=== PATIENT | male | born 1940 | race Caucasian/White ===

== ENCOUNTER 2017-04-23 10:07 | Inpatient (IN) | payer MEDICARE ==
[2017-04-23 11:02] LABS: #Basophils 0.1 thou/uL (0.0-0.2); #Monocytes 0.6 thou/uL (0.11-0.59); #Neutrophils 7.7 thou/uL (1.40-6.50); %Basophils 0.7 % (0.0-1.0); %Eosinophils 0.5 % (0.0-10.0); %Lymphocytes 10.9 % (21.0-51.0); %Monocytes 6.2 % (0.0-10.0); %Neutrophils 81.7 % (42.0-75.0); Hemoglobin 13.9 g/dL (14.0-18.0); Mean Corpuscular HGB CONC 32.9 g/dL (32.0-36.0); Mean Corpuscular Hemoglobin 28.7 pg (27.0-31.0); Mean Corpuscular Volume 87.1 fl (80.0-94.0); Mean Platelet Volume 9.3 fL (7.4-10.4); Platelet Count 181 thou/uL (130-400); RBC Distribution Width 13.2 % (11.5-14.5); Red Blood Cell (RBC) Count 4.87 mill/uL (4.70-6.10); White Blood Cell (WBC) Count 9.5 thou/uL (4.8-10.8)
[2017-04-23 11:25] LABS: ALT (SGPT) 19 U/L (8-55); AST (SGOT) 15 U/L (5-34); Albumin 4.5 g/dL (3.4-4.8); Alkaline Phosphatase 110 U/L (40-150); Anion Gap 16 mmol/L (10-20); BUN (Urea Nitrogen) 27 mg/dL (8.4-25.7); Bilirubin, Total 2.4 mg/dL (0.2-1.2); Calc. Creatinine Clearance 0 mL/min (70-130); Calcium 9.8 mg/dL (7.8-10.44); Carbon Dioxide 24 mmol/L (23-31); Chloride 91 mmol/L (98-107); Estimated GFR-MDRD 55; Globulin 3.2 g/dL (2.4-3.5); Glucose 239 mg/dL (83-110); Potassium 4.4 mmol/L (3.5-5.1); Protein, Total 7.7 g/dL (5.8-8.1); Sodium 127 mmol/L (136-145)
--- NOTE | 2017-04-23 12:03 | RAD ---
RADIOGRAPH RIGHT FOOT 3 VIEWS: Date: 04/23/17 Time: 1134 hours HISTORY: 76-year-old male with cellulitis of right lower extremity and pain and swelling of the right foot. COMPARISON: None. FINDINGS: There is diffuse soft tissue edema of the foot, especially around the fifth toe and around the fifth MTP joint. There are hammertoes involving the second through fifth toes. There is undulating, chronic cortical thickening throughout the diaphyses of the third and fourth metatarsals. No aggressive-appe aring periosteal elevation, obvious permeative destructive osseous lesion is identified, although the osteopenia decreases the sensitivity for the detection of such lesions. No fracture or dislocation. Degenerative changes in various joints are predominantly mild. It is mild to moderate at the first MT P. No subcutaneous emphysema is identified. IMPRESSION: 1. Soft tissue edema of the foot, most severe around the fifth metatarsophalangeal joint. 2. Diffuse osteopenia. 3. Multijoint osteoarthrosis, predominantly mild. 4. Chronic periosteal/cortical thickening along the third and fourth metatarsal shafts. 5. No overtly destructive osseous lesion identified. POS: [facility]
[2017-04-23] MEDS ORDERED: CEFAZOLIN 1 GM, Syringe 2.5 ML in Sterile Water 7.5 ML SLOW IVP SCH (13:00)
[2017-04-23] MEDS ORDERED: Ondansetron HCl/PF 4 MG/2 ML Vial IVP PRN (14:48)
[2017-04-23] MEDS ORDERED: Insulin Regular 300 UNITS/3 ML VIAL SC PRN ×2 (14:48)
[2017-04-23] MEDS ORDERED: hydrALAZINE 20 MG/ML VIAL SLOW IVP PRN (14:48)
[2017-04-23] MEDS ORDERED: Dextrose 5% in Water 1,000 ML IV PRN (14:48)
[2017-04-23] MEDS ORDERED: Nitroglycerin 0.4 MG TAB (25 Tab Bottle) PO PRN (14:48)
[2017-04-23] MEDS ORDERED: Dextrose 50% Abboject 50 ML SYRINGE SLOW IVP PRN (14:48)
[2017-04-23] MEDS ORDERED: Fentanyl 100 MCG/2 ML VIAL SLOW IVP PRN (14:48)
[2017-04-23] MEDS ORDERED: Ondansetron ODT 4 MG TAB PO PRN (14:48)
[2017-04-23] MEDS ORDERED: Acetaminophen 325 MG TAB PO PRN (14:48)
[2017-04-23] MEDS ORDERED: Calcium Carbonate 500 MG ChewTAB PO PRN (14:48)
[2017-04-23] MEDS ORDERED: Senokot 8.6 MG TAB PO PRN (14:48)
[2017-04-23 14:56] VITALS: BMI 28.8
[2017-04-23] MEDS: Sodium Chloride 0.9% 1,000 ML IV SCH (15:15)
[2017-04-23] MEDS ORDERED: Meropenem 1 GM in Sodium Chloride 0.9% 100 ML IVPB SCH (16:00)
[2017-04-23] MEDS ORDERED: Meropenem 1 GM in Sterile Water 20 ML SLOW IVP SCH (16:00)
--- NOTE | 2017-04-23 17:02 | HP ---
DATE OF ADMISSION: 04/23/2017 PRIMARY CARE PHYSICIAN: Rohit Burnette M.D. CHIEF COMPLAINT: Right foot swelling of 3 days' duration. HISTORY OF PRESENT ILLNESS: The patient is a 76-year-old white male with diabetes mellitus type 2, who presented to his primary care physician earlier today with above complaints. He was referred to the emergency room for evaluation. Approximately 1 week ago, the patient slipped on ice and fell. There was no loss of consciousness reported. The next day he noticed several blisters on bilateral feet, right more than left. The blister on the left lower extremity completely resolved. Over the last 2-3 days, the patient noticed increasing redness along with discomfort of the right foot. All of the blisters have ruptured. He tried of applying over the counter topical antibiotics without much relief. The redness extended up to the upper legs. There was also significant swelling associated with redness. Yesterday, he had nausea along with 3 episodes of vomiting. In the emergency room, he was started on empiric antibiotics. Please note that blood cultures were not done. PAST MEDICAL HISTORY: 1. Diabetes mellitus type 2. 2. Hypertension. 3. Chronic atrial fibrillation, on anticoagulation. 4. Gout. 5. History of TIA in 2012. 6. Dyslipidemia. 7. PVD PAST SURGICAL HISTORY: Hydrocele repair in 1971. ALLERGIES: The patient is allergic to ASPIRIN and OXYCODONE. CURRENT HOME MEDICATIONS: The patient is able to name some of his medications that include Eliquis, enalapril, glipizide, metformin, digoxin, allopurinol, and hydrochlorothiazide. SOCIAL HISTORY: The patient currently lives at home. Denies any smoking, alcohol or drug use. He is FULL CODE. Makes his own decision. FAMILY HISTORY: Negative for premature coronary artery disease. REVIEW OF SYSTEMS: The following complete review of systems was negative, unless otherwise mentioned in the HPI or below: Constitutional: Weight loss or gain, ability to conduct usual activities. Skin: Rash, itching. Eyes: Double vision, pain. ENT/Mouth: Nose bleeding, neck stiffness, pain, tenderness. Cardiovascular: Palpitations, dyspnea on exertion, orthopnea. Respiratory: Shortness of breath, wheezing, cough, hemoptysis, fever or night sweats. Gastrointestinal: Poor appetite, abdominal pain, heartburn, nausea, vomiting, constipation, or diarrhea. Genitourinary: Urgency, frequency, dysuria, nocturia. Musculoskeletal: Pain, swelling. Neurologic/Psychiatric: Anxiety, depression. Allergy/Immunologic: Skin rash, bleeding tendency. PHYSICAL EXAMINATION: VITAL SIGNS: As discussed above. GENERAL: A 76-year-old male, in no apparent distress. Pain controlled at this time. HEENT: Head atraumatic, normocephalic. Sclerae anicteric. Moist mucous membrane. No oral lesion. NECK: Supple. No JVD appreciated. No carotid bruit. LUNGS: Clear to auscultation bilaterally. No wheezing or rales. HEART: S1, S2 present. Irregularly irregular. No rubs or gallops appreciated. ABDOMEN: Soft, nontender, bowel sounds present. EXTREMITIES: There is significant swelling of the right lower extremity with warmth and tenderness. The ruptured blisters were noted mainly around 3rd, 4th , and 5th digits. The right lower extremity was tender on palpation. The left lower extremity blisters has completely resolved. SKIN: As discussed above. LYMPH NODES: No palpable lymph nodes in the neck. PERIPHERAL VASCULAR: Radial pulses palpable bilaterally. MUSCULOSKELETAL: No joint swelling or tenderness. NEUROLOGIC: Grossly nonfocal, moves all four extremities. PSYCHIATRY: Alert, awake, oriented x3. LABORATORY FINDINGS: CBC showed WBC of 9.5 with hemoglobin 13.9, hematocrit 42.4, platelet count of 181. Chemistries showed sodium 127, potassium 4.4, chloride 91, bicarbonate 24, BUN 27, creatinine 1.27, glucose 239. CRP was 4.85. X-ray of the foot by my review showed soft tissue edema, more severe around the fifth metatarsophalangeal joint. IMPRESSION: 1. Right foot cellulitis with probable infected diabetic superficial ulcerations. 2. Diabetes mellitus type 2. 3. Chronic atrial fibrillation, on anticoagulation. 4. Hypertension. 5. Hyperlipidemia. 6. History of transient ischemic attack. 7. Hyponatremia with prerenal azotemia, probably secondary to dehydration. 8. PVD PLAN: The patient will be monitored on the medical floor. Due to significant swelling and erythema, the patient will require at least 2-3 days of IV antibiotics. We will consult Infectious Disease, Dr. Rogers. We will start empiric vancomycin and meropenem. Wound Care will be consulted. We will resume home medications including Eliquis once dosages are confirmed. We will repeat labs in a.m. Avoid SCDs due to PVD. Plan of care was discussed with the patient in detail. He stated understanding. MTDD
--- NOTE | 2017-04-23 20:08 | CON ---
DATE OF CONSULTATION: 04/23/2017 REASON FOR CONSULTATION: He is in the right foot inflammatory process. HISTORY OF PRESENT ILLNESS: A 76-year-old with a history of type 2 diabetes with neuropathy and atri al fibrillation, on blood thinners, as well as gout, who fell a few days ago. Then, he noticed infla mmatory changes with blistering in the right and left feet, more intense on the right side. Over the past 48 hours, there has been worsening erythema and pain in the right foot and he was admitted asso ciated with some nausea and general malaise. No headaches, visual symptoms, sore throat, odynophagia , dysphagia. No cough, sputum production, or chest pain. No abdominal pain, diarrhea, no genitourin ayla symptoms, no other joint symptoms. No neurological symptoms. PAST MEDICAL HISTORY: Type 2 diabetes, hypertension, atrial fibrillation, on blood thinners, gout, T IA, dyslipidemia. PAST SURGICAL HISTORY: Hydrocele repair. ALLERGIES: ASPIRIN, OXYCODONE. MEDICATIONS: Currently receiving Ecotrin, dextrose, digoxin, docusate, enalapril, glucagon, hydralaz ine, meropenem, vancomycin. 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 Never smoker. PHYSICAL EXAMINATION: VITAL SIGNS: T-max 97.7, BP 180/90, pulse 72, respirations 18, O2 saturation 98%. GENERAL: Appears in no distress. SKIN: Shows the areas of blistering in the right foot. Blisters involve the first, third, fourth, a nd fifth toes. There is a lot of maceration in the interdigital folds webspace area and there is a l arge blister in the lateral aspect of the fifth MPJ side with some areas of necrosis. There is eryth radha ascending through the foot and distal right leg in a circumferential distribution. There is a sh allow blister in the left medial mid foot region, which has no inflammatory changes noticeable. No l ymphadenopathy. HEENT: Ocular movements are conjugate. Oral cavity is with numerous teeth with quite a bit of decay . NECK: Supple, no jugular venous distention. LUNGS: Symmetric, clear breath sounds. HEART: S1, S2, regular rate. No S3 or S4. ABDOMEN: Soft, not distended or tender. No ascites. No bladder distention, no general malaise. EXTREMITIES: Pulses are 2+ in popliteals and faintly palpable in dorsalis pedis, most likely because of edema on the right side. The left side, the pulses are 1+. Capillary refill appears normal. He is able to move extremities equally. NEUROLOGIC: His cognitive function appears to be intact. LABORATORY DATA: White cell count is 5.2, on 9.5, hemoglobin 13, platelets 181, 81% neutrophils. Cr eatinine 1.29, GFR 55, glucose 239. Liver profile normal. Albumin 4.6, globulin 3.1. TSH 2.5. Hep atitis serology negative. CRP 4.85. X-rays with no bony lesions from the foot. Arterial Doppler of lower extremity with biphasic waveform left common femoral artery. The right leg with triphasic wav eform which becomes biphasic in the SFA and again, the waveform becomes triphasic again in the distal aspects. There are monophasic waveforms distal to the right knee. ASSESSMENT: Diabetes type 2 with some element of peripheral vascular disease and injury to the right foot with areas of blistering. This occurred after a fall. There is cellulitis associated with thi s. It is ascending to the distal right leg. DISCUSSION: The blistering and erythema appear to be a consequence of the fall on the right side and he does have associated cellulitis now. The depth of inflammatory involvement is not clear and we w ill check his MRI scan of the right foot. We will place interdigital silver impregnated material. I n view of the monophasic waveforms, may merit evaluation by a vascular surgeon.
[2017-04-23] MEDS ORDERED: Cefepime 2 GM in Sodium Chloride 0.9% 100 ML IVPB SCH (21:00)
[2017-04-23] MEDS ORDERED: Hydrochlorothiazide 25 MG TAB PO SCH (21:00)
[2017-04-23] MEDS: Apixaban 5 MG TAB PO SCH (21:20)
[2017-04-23] MEDS: Aspirin 81 mg Enteric Coated Tablet PO SCH (21:21)
[2017-04-23] MEDS: Docusate 100 MG CAP PO SCH (21:21)
[2017-04-23] MEDS: Famotidine 20 MG TAB PO SCH (21:22)
[2017-04-23] MEDS: Cefepime 2 GM, Syringe 2.5 ML in Sterile Water 10 ML SLOW IVP SCH (21:55)
[2017-04-24] MEDS ORDERED: Vancomycin HCl 1 GM in Premix Bag 1 BAG IVPB SCH (02:00)
[2017-04-24 05:10] LABS: #Basophils 0.1 thou/uL (0.0-0.2); #Eosinphils 0.2 thou/uL (0.0-0.7); #Monocytes 0.7 thou/uL (0.11-0.59); #Neutrophils 5.4 thou/uL (1.40-6.50); %Basophils 0.8 % (0.0-1.0); %Lymphocytes 23.4 % (21.0-51.0); %Monocytes 8.9 % (0.0-10.0); Hemoglobin 12.1 g/dL (14.0-18.0); Mean Corpuscular HGB CONC 32.4 g/dL (32.0-36.0); Mean Corpuscular Hemoglobin 28.3 pg (27.0-31.0); Mean Corpuscular Volume 87.3 fl (80.0-94.0); Mean Platelet Volume 9.7 fL (7.4-10.4); Platelet Count 169 thou/uL (130-400); Red Blood Cell (RBC) Count 4.27 mill/uL (4.70-6.10); White Blood Cell (WBC) Count 8.3 thou/uL (4.8-10.8)
[2017-04-24 05:22] LABS: Lactic Acid 0.8 mmol/L (0.5-2.2)
[2017-04-24 05:32] LABS: ALT (SGPT) 14 U/L (8-55); AST (SGOT) 11 U/L (5-34); Albumin 3.9 g/dL (3.4-4.8); Alkaline Phosphatase 95 U/L (40-150); Anion Gap 11 mmol/L (10-20); BUN (Urea Nitrogen) 21 mg/dL (8.4-25.7); Bilirubin, Total 1.6 mg/dL (0.2-1.2); Calc. Creatinine Clearance 80 mL/min (70-130); Calcium 9.1 mg/dL (7.8-10.44); Carbon Dioxide 29 mmol/L (23-31); Chloride 95 mmol/L (98-107); Estimated GFR-MDRD 62; Globulin 2.6 g/dL (2.4-3.5); Glucose 215 mg/dL (83-110); Magnesium 1.8 mg/dL (1.6-2.6); Potassium 4.1 mmol/L (3.5-5.1); Protein, Total 6.5 g/dL (5.8-8.1); Sodium 131 mmol/L (136-145)
[2017-04-24] MEDS ORDERED: glipiZIDE 5 MG TAB PO SCH (07:30)
[2017-04-24] MEDS ORDERED: metFORMIN 500 MG TAB PO SCH (09:30)
[2017-04-24] MEDS: Allopurinol 300 MG TAB PO SCH (09:40)
[2017-04-24] MEDS: Digoxin 0.25 MG TAB PO SCH (09:40)
[2017-04-24] MEDS: Apixaban 5 MG TAB PO SCH ×2 (09:40→19:55)
[2017-04-24] MEDS: Saccharomyces boulardii 250 MG CAP PO SCH (09:47)
[2017-04-24] MEDS: Docusate 100 MG CAP PO SCH ×2 (09:47→19:56)
[2017-04-24] MEDS: Cefepime 2 GM, Syringe 2.5 ML in Sterile Water 10 ML SLOW IVP SCH (09:47)
[2017-04-24] MEDS: Famotidine 20 MG TAB PO SCH ×2 (09:47→19:56)
[2017-04-24] MEDS: Sodium Chloride 0.9% 1,000 ML IV SCH ×3 (09:48→19:59)
--- NOTE | 2017-04-24 09:51 | MRI ---
MRI RIGHT FOOT WITH AND WITHOUT CONTRAST: HISTORY: Skin blistering, evaluate for osteomyelitis. COMPARISON: Radiograph 04/23/17. FINDINGS: Bones: There is reactive edema of the tuft of the distal phalanx great toe. There is also some low-grade ed radha within the distal and the proximal phalanx of the small bowel with mild enhancement. No loss of normal T1 marrow signal to suggest osteomyelitis. This is likely from reactive changes. No fracture. No malalignment. Soft Tissues: There is some skin thickening and poor enhancement of the tissue surrounding the 5th digit suggesting cellulitis and infection. There also appears to be a skin blister at the great toe distal phalanx p lantar soft tissues and also of the forefoot plantar soft tissues. Muscles: There is extensive muscle atrophy. No evidence for pyomyositis. Tendons: No significant tenosynovitis. IMPRESSION: 1. Reactive edema within the proximal and distal phalanx small toe adjacent to an area of cellulitis and soft tissue infection. The patient is at high risk for developing osteomyelitis. 2. Reactive edema of the tuft of the distal phalanx of the great toe. POS: [facility]
--- NOTE | 2017-04-24 14:02 | CON ---
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 Vita mills. He has a history of diabetes mellitus, poorly controlled, with most recent hemoglobin A1c of 9. He fell on some ice 1 week ago and developed a blister initially on his left foot and then follo wed by his right foot. Due to persistent pain in his foot on the right, he asked his to look at his foot and subsequently this led to hospital admission. He has cardiovascular risk factors of abner betes mellitus, hypertension, and a remote smoking history, although none since 1980. He denies any elevated cholesterol level, although was placed on the statins by , which the patient subseq uently stopped. He also has a history of chronic atrial fibrillation, for which he is on anticoagula tion. He has no history of coronary disease. He has a history of gout and had a TIA about 2 years a go. He states that he has been evaluated for arterial insufficiency of his legs in the past, but lopez s not know the results. He admits to his legs becoming tired if he walks uphill, but mostly this is in his hips and lower back. He does not have any claudication in his calves. PAST SURGICAL HISTORY: Hydrocele in 1971. 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 ALLERGIES: He reports allergies to ASPIRIN and OXYCODONE and intolerance to STATINS. HOME MEDICATIONS: Metformin 1000 b.i.d., glipizide 5 mg every noon recently increased from 2.5 mg, e nalapril 20 b.i.d., digoxin 250 mcg daily, aspirin 81 a day, Eliquis 5 b.i.d., and allopurinol 300 a day. PHYSICAL EXAMINATION: GENERAL: He is an alert, cooperative gentleman, in no distress. VITAL SIGNS: His height 6 feet 2 inches, weight 225. NECK: No carotid bruits. CARDIAC: Irregular rhythm, no murmurs. LUNGS: Clear to auscultation. ABDOMEN: Mildly obese, soft, and nontender. EXTREMITIES: He has palpable femoral and popliteal pulses with no swelling in his left leg. He has mild edema in his right lower leg. He has skin changes of pigmentation consistent with chronic venou s insufficiency bilaterally. He has a small ruptured blister on the dorsum of his left foot with no cellulitis and he has cellulitis on the dorsum of his right foot, particularly laterally. He has mac erated fourth and fifth toes and a black eschar over the lateral aspect of the right fifth metatarsal head area about 1 x 3 cm. He has a blister on the lateral aspect of his foot more proximally. His great toe has a black blister, but toes otherwise appear pink and well perfused. Doppler signals lisa aterally monophasic dorsalis pedis signals, biphasic posterior tibial signals, and more triphasic per palomares signals. At this time, the patient does have at least mild to moderate peripheral arterial disease. He has no palpable pedal pulses, but his dominant vessel appears to be his peroneal artery bilaterally by ston e Doppler signals. At this time, we will aggressively treat him for Staph or strep cellulitis as is being done and elevate his legs to minimize edema and then he may need some debridement of this wound . Angiography will be considered if he fails to exhibit healing once the infectious process has reso lved.
[2017-04-24] MEDS: metFORMIN 500 MG TAB PO SCH (17:12)
--- NOTE | 2017-04-24 18:21 | PRG ---
DATE OF SERVICE: 04/24/2017 SUBJECTIVE: Feeling better. No respiratory symptoms. No abdominal pain or diarrhea. Voiding witho ut difficulty. OBJECTIVE: VITAL SIGNS: Normal. LUNGS: Clear. HEART: S1, S2, regular rate. ABDOMEN: Soft. EXTREMITIES: Right foot with a dressing which was not removed. LABORATORY DATA: The CBC is normal today. Chemistry with a creatinine of 1.14. MRI showed no evide nce of cellulitis, but no abscess, some reactive edema in the proximal distal phalanx small toe, sabino cent to an area of cellulitis and reactive edema of the tuft of the distal phalanx of the great toe a s well. ASSESSMENT AND DISCUSSION: Type 2 diabetes and peripheral vascular disease, injury to the right foot , areas of blistering, no evidence of osteomyelitis at this point in time. We do not have any cultur e data. Streptococcal organisms are the most likely culprits here and could potentially discharge pl anning with oral Cipro plus Keflex. We will go ahead and make the transition today and see if he [place] erates and consider discharge planning tomorrow with wound care.
[2017-04-24] MEDS: Cephalexin 250 MG CAP PO SCH (19:55)
[2017-04-24] MEDS: Cipro 250 MG TAB PO SCH (19:55)
[2017-04-24] MEDS: Aspirin 81 mg Enteric Coated Tablet PO SCH (19:57)
--- NOTE | 2017-04-24 21:19 | PDOC.PN ---
- Subjective Encounter Start Date: 04/24/17 Encounter Start Time: 10:30 Patient seen and examined. Rt foot swelling/redness improving. No overnight events - Objective Resuscitation Status: Resuscitation Status FULL:Full Resuscitation MAR Reviewed: Yes Vital Signs & Weight: Vital Signs (12 hours) Temp Pulse Resp BP BP Pulse Ox 04/24/17 15:35 98.1 F 66 20 138/79 97 04/24/17 11:23 98.3 F 58 L 18 147/81 H 97 04/24/17 09:40 62 168/85 H Weight Admit Weight 225 lb Weight 225 lb I&O: 04/23/17 04/24/17 04/25/17 06:59 06:59 06:59 Intake Total 975 1520 Output Total 1400 Balance 975 120 Result Diagrams: 04/24/17 03:58 04/24/17 03:58 Additional Labs: Accuchecks 04/24/17 04/24/17 04/24/17 16:15 11:26 04:23 POC Glucose 139 H 241 H 192 H 04/23/17 19:49 POC Glucose 204 H Phys Exam - Physical Examination Constitutional: NAD Respiratory: no wheezing, no rhonchi Cardiovascular: RRR, no rub Gastrointestinal: soft, non-tender, positive bowel sounds Neurological: moves all 4 limbs Psychiatric: A&O x 3 Dx/Plan - Plan IMPRESSION: 1. Right foot cellulitis with probable infected diabetic superficial ulcerations. 2. Diabetes mellitus type 2. 3. Chronic atrial fibrillation, on anticoagulation. 4. Hypertension. 5. Hyperlipidemia. 6. History of transient ischemic attack. 7. Hyponatremia with prerenal azotemia, probably secondary to dehydration. 8. PVD PLAN: * Consult Vascular for PVD per ID input * ID input appreciated * MRI result noted * Cont Atbx per ID * Cont current meds as below. Review of Systems - Review of Systems Cardiovascular: negative: chest pain, palpitations, orthopnea, paroxysmal nocturnal dyspnea, edema, light headedness Gastrointestinal: negative: Nausea, Vomiting, Abdominal Pain, Diarrhea, Constipation, Melena, Hematochezia - Medications/Allergies Allergies/Adverse Reactions: Allergies Allergy/AdvReac Type Severity Reaction Status Date / Time oxycodone [From Percodan] Allergy Unverified 04/23/17 12:57 Medications: Current Medications Acetaminophen (Tylenol) 650 mg PO Q4H PRN PRN Reason: Headache/Fever or Pain Allopurinol (Zyloprim) 300 mg PO DAILY [facility] Last Admin: 04/24/17 09:40 Dose: 300 mg Apixaban (Eliquis) 5 mg PO BID [facility] Last Admin: 04/24/17 19:55 Dose: 5 mg Aspirin (Ecotrin) 81 mg PO HS [facility] Last Admin: 04/24/17 19:57 Dose: 81 mg Calcium Carbonate (Tums) 1,000 mg PO Q4H PRN PRN Reason: Heartburn or Indigestion Cephalexin (Keflex) 500 mg PO Q6HR [facility] Last Admin: 04/24/17 19:55 Dose: 500 mg Ciprofloxacin (Cipro) 500 mg PO BID@0600,2000 [facility] Last Admin: 04/24/17 19:55 Dose: 500 mg Dextrose/Water (Dextrose 50%) 25 gm SLOW IVP PRN PRN PRN Reason: Hypoglycemia Digoxin (Lanoxin) 0.25 mg PO DAILY [facility] Last Admin: 04/24/17 09:40 Dose: 0.25 mg Docusate Sodium (Colace) 100 mg PO BID [facility] Last Admin: 04/24/17 19:56 Dose: Not Given Enalapril Maleate (Vasotec) 20 mg PO BID [facility] Last Admin: 04/24/17 19:55 Dose: 20 mg Famotidine (Pepcid) 20 mg PO BID [facility] Last Admin: 04/24/17 19:56 Dose: 20 mg Glipizide (Glucotrol Xl) 5 mg PO QAM-[facility] Last Admin: 04/24/17 09:40 Dose: 5 mg Glucagon (Glucagon) 1 mg IM PRN PRN PRN Reason: Hypoglycemia Hydralazine HCl (Apresoline) 10 mg SLOW IVP Q4H PRN PRN Reason: SBP Greater Than 180 Sodium Chloride (Normal Saline 0.9%) 1,000 mls @ 75 mls/hr IV .[id number] [facility] Last Admin: 04/24/17 19:59 Dose: 1,000 mls Dextrose/Water (D5w) 1,000 mls @ 0 mls/hr IV .Q0M PRN; As Directed PRN Reason: Hypoglycemia Insulin Human Regular (Humulin R) 0 units SC .MILD SLIDING SCALE PRN PRN Reason: Mild Correctional Scale Insulin Human Regular (Humulin R) 0 units SC .BEDTIME SLIDING SC PRN PRN Reason: Bedtime Correctional Scale Metformin HCl (Glucophage) 1,000 mg PO BID-[facility] Last Admin: 04/24/17 17:12 Dose: 1,000 mg Nitroglycerin (Nitrostat) 0.4 mg PO Q5MIN PRN PRN Reason: Chest Pain Ondansetron HCl (Zofran Odt) 4 mg PO Q6H PRN PRN Reason: Nausea/Vomiting Ondansetron HCl (Zofran) 4 mg IVP Q6H PRN PRN Reason: Nausea/Vomiting Saccharomyces Boulardii (Florastor) 250 mg PO DAILY [facility] Last Admin: 04/24/17 09:47 Dose: Not Given Senna (Senokot) 2 tab PO HSPRN PRN PRN Reason: Constipation
[2017-04-25] MEDS: Cephalexin 250 MG CAP PO SCH ×3 (00:33→12:09)
[2017-04-25] MEDS: Cipro 250 MG TAB PO SCH (05:24)
[2017-04-25] MEDS: Sodium Chloride 0.9% 1,000 ML IV SCH (09:59)
[2017-04-25] MEDS: metFORMIN 500 MG TAB PO SCH (10:01)
[2017-04-25] MEDS: Famotidine 20 MG TAB PO SCH (10:01)
[2017-04-25] MEDS: Saccharomyces boulardii 250 MG CAP PO SCH (10:01)
[2017-04-25] MEDS: Allopurinol 300 MG TAB PO SCH (10:02)
[2017-04-25] MEDS: Apixaban 5 MG TAB PO SCH (10:02)
[2017-04-25] MEDS: Digoxin 0.25 MG TAB PO SCH (10:02)
[2017-04-25] MEDS: Docusate 100 MG CAP PO SCH (10:07)
[2017-04-25] MEDS ORDERED: Sodium Chloride 0.9% 1,000 ML IV SCH (11:51)
[2017-04-25 11:56] VITALS: BP 156/85; TEMP 97.9
--- NOTE | 2017-04-25 13:34 | DIS ---
DATE OF DISCHARGE: 04/25/2017 DISCHARGE DISPOSITION: Home. DISCHARGE INSTRUCTIONS: 1. Follow up with primary care physician, Dr. Burnette in 1 week. 2. Follow up with Dr. Kalia Velázquez, vascular after 7-10 days. 3. Follow up with Dr. Rogers in 7-10 days. 4. Outpatient wound care is recommended. 5. Fall precaution was emphasized. 6. CBC, BMP, and CRP after the antibiotic completion is recommended. Primary care physician is miguel mariscal to follow. ALLERGIES: OXYCODONE. DISCHARGE MEDICATIONS: 1. Keflex 500 mg every 6 hours for the next 12 days. 2. Ciprofloxacin 500 mg b.i.d. for the next 12 days. 3. Digoxin 250 mcg daily. 4. Enalapril 20 mg b.i.d. 5. Glipizide extended release 5 mg daily. 6. Hydrochlorothiazide 25 mg daily. 7. Metformin 1000 mg b.i.d. 8. Florastor 250 mg daily for the next 20 days. 9. Saw palmetto 450 mg b.i.d. 10. Allopurinol 300 mg daily. 11. Apixaban 5 mg b.i.d. 12. Aspirin 81 mg daily. INPATIENT CONSULTANTS: 1. Kalia Velázquez M.D., Vascular. 2. Infectious Disease, Dr. Rogers. 3. Inpatient wound care team. The patient was seen and examined on the day of discharge, denies any new complaints. No fevers, ch ills, chest pain, shortness of breath, palpitations reported. Right lower extremity swelling is impr oving. SIGNIFICANT LABORATORY DATA: 1. Sodium on admission was 127; next day, it was 131. 2. CRP was 4.85. 3. CBC showed WBC 9.5 with neutrophils of 81.7%. 4. MRI of the right lower extremity showed reactive edema within the proximal and distal phalanx, sm all toe adjacent to an area of cellulitis and soft tissue infection. The patient is at high risk for developing osteomyelitis. There was also reactive edema of the tuft of the distal phalanx of the gr eat toe. BRIEF HOSPITAL COURSE: The patient is a 76-year-old white male with diabetes mellitus type 2, who pr esented to his primary care physician with right foot swelling of 3 days' duration. This happened af ter patient slipped on ice and fell last week. Please refer to the history and physical dated 2017 for further details. The patient was admitted to the hospital with a diagnosis of right foot cellulitis with possible oste omyelitis. MRI of the foot was negative for osteomyelitis. The patient was evaluated by Infectious Disease, Dr. Rogers. Antibiotics have been optimized per Dr. Rogers. The patient was also evaluated b y Vascular Surgery, Dr. Kalia Velázquez due to history of peripheral vascular disease. Dr. Velázquez recomme nded continuation of antibiotics for now. He will follow up with Dr. Velázquez as an outpatient. Kierra gee will be discharged home with oral ciprofloxacin and Keflex. The patient was extensively counseled on diabetes mellitus type 2. His last A1c was around 9. Plan of care was discussed with the patient and the family at the bedside. Total time coordinating the discharge of this patient was 37 minutes. FINAL DIAGNOSES: 1. Right foot cellulitis with infected diabetic ulcers superficial. 2. Diabetes mellitus type 2. 3. Chronic atrial fibrillation, on anticoagulation. 4. Hypertension. 5. Hyperlipidemia. 6. History of transient ischemic attack. 7. Hyponatremia, improved. 8. Prerenal azotemia on admission, improved. 9. Peripheral vascular disease.
== END 2017-04-25 15:39 | disposition home or self-care (01) | DRG 638 ==
LOC: ERS 10:07 → T4-B 13:49
PROVIDERS: ADMIT Internal Medicine; ATTEND Internal Medicine
DX: E11.628 Type 2 diabetes mellitus with other skin complications (principal); L03.115 Cellulitis of right lower limb; L97.511 Non-pressure chronic ulcer of other part of right foot limited to breakdown of skin; E11.40 Type 2 diabetes mellitus with diabetic neuropathy, unspecified; E11.621 Type 2 diabetes mellitus with foot ulcer; I48.2 Chronic atrial fibrillation; E86.0 Dehydration; E11.51 Type 2 diabetes mellitus with diabetic peripheral angiopathy without gangrene; E87.1 Hypo-osmolality and hyponatremia; E78.5 Hyperlipidemia, unspecified; I10 Essential (primary) hypertension; W00.0XXA Fall on same level due to ice and snow, initial encounter; R79.89 Other specified abnormal findings of blood chemistry; Z79.01 Long term (current) use of anticoagulants; Z86.73 Personal history of transient ischemic attack (TIA), and cerebral infarction without residual deficits; Z87.891 Personal history of nicotine dependence; M10.9 Gout, unspecified
CPT/HCPCS: 36415; 36416; 80053; 83605; 83735; 85025; 86140; 94760; 96361; 96365; A4216; J0690; J0692; J1815; J2185; J3370; J7050

== ENCOUNTER 2017-05-02 08:46 | Outpatient (CLI) | payer MEDICARE ==
--- NOTE | 2017-05-03 00:12 | HP ---
DATE OF SERVICE: 05/02/2017 HISTORY OF PRESENT ILLNESS: Mr. Thomas Rock Jr. is a very pleasant 76-year-old gentleman accomp anied by his , who presents to the Wound Center for evaluation of multiple lesions of the right f oot. The patient's states that on 04/17/2017, the patient slipped and fell on ice. Apparently, the patient developed blisters, which were noted the day after his fall. The largest blister was lo cated over the right lateral forefoot. The patient was seen by his primary care physician, Dr. Leta baptiste, 6 days later and at this time referred to the Emergency Department. After being seen in the E mergency Department, the patient was admitted for further evaluation and treatment. The patient was discharged from [facility] on 04/25/2017. The patient's states that Mr. Rock has been receiving dressing changes of ABDs and gauze. The patient's states that Mr. Isabelle bauer was seen in consultation by Dr. Velázquez during his hospital stay. The patient states that he has a [facility] appointment with Dr. Velázquez later today. PAST MEDICAL HISTORY: 1. Diabetes mellitus. 2. Hypertension. 3. Atrial fibrillation. 4. Gout. 5. History of transient ischemic attack. 6. Peripheral vascular disease. PAST SURGICAL HISTORY: Repair of hydrocele. MEDICATIONS: 1. Ciprofloxacin. 2. Metformin. 3. Glipizide. 4. Keflex. ALLERGIES: PERCODAN. SOCIAL HISTORY: Significant for tobacco use of approximately 4 packs of cigarettes per day for 25 ye ars. The patient admits to the social consumption of alcohol in the past. He states that he stopped drinking completely 8 years ago. FAMILY HISTORY: Negative for diabetes mellitus or coronary artery disease. PHYSICAL EXAMINATION: VITAL SIGNS: Temperature 97.3, pulse 77, respirations 18, blood pressure 184/90. Accu-Chek 154. GENERAL: A 76-year-old gentleman lying on table in examination room in no acute distress. HEENT: Normocephalic, atraumatic. NECK: No nuchal rigidity. CHEST: Clear to auscultation. CARDIAC: Regular rate and rhythm. ABDOMEN: Soft. EXTREMITIES: An ulceration of the plantar surface of the right lateral foot is present, which measur es approximately 6.2 x 2.1 cm. Granulation tissue is visible only at the periphery of the wound. Mo st of the wound bed is covered by dry stable eschar. No purulent drainage is associated with the wou nd. No erythema of the skin surrounding the wound is present. No maceration of the skin of the lisa wound is noted. A dorsalis pedis pulse is palpable on the right. No significant edema of the right foot is present on exam today. ASSESSMENT AND PLAN: 1. Ulceration of plantar surface of right lateral foot. Dressing changes of Silverlon will be initi ated today. These dressing changes are to be performed on a daily basis or alternatively three times per week after cleansing and irrigation. The patient has been asked to keep his followup appointmen t with Dr. Velázquez later today. I will see Hallie Pranav again in two weeks. The patient is to continue c iprofloxacin as previously prescribed. The patient and his understand and are in agreement with the preceding treatment plan. 2. Diabetes mellitus. Patient's Accu-Chek in clinic today is 154. The patient has been told that f or optimal wound healing, his blood glucoses should remain below 150. 3. Hypertension. 4. Atrial fibrillation. 5. Gout. 6. History of transient ischemic attack. 7. Peripheral vascular disease.
[2017-05-06] MEDS ORDERED: Sodium Chloride 0.9% 15 ML NEB ONE (15:39)
== END 2017-05-02 08:47 | disposition home or self-care (01) ==
LOC: WCC 08:46
PROVIDERS: ATTEND Family Medicine
DX: E11.621 Type 2 diabetes mellitus with foot ulcer (principal); L97.519 Non-pressure chronic ulcer of other part of right foot with unspecified severity; I10 Essential (primary) hypertension; I48.91 Unspecified atrial fibrillation; M10.9 Gout, unspecified; I73.9 Peripheral vascular disease, unspecified; Z86.73 Personal history of transient ischemic attack (TIA), and cerebral infarction without residual deficits
CPT/HCPCS: 82962; 97139; 97602; G0463; 36416; 99204

== ENCOUNTER 2017-05-16 09:00 | Outpatient (CLI) | payer MEDICARE ==
--- NOTE | 2017-05-16 10:05 | PRG ---
DATE OF SERVICE: 05/16/2017 HISTORY: Mr. Thomas Rock, . is a very pleasant 76-year-old gentleman accompanied by his who presents to the Wound Center for evaluation of multiple lesions of the right foot. The patient's previously stated that on 04/17/2017 the patient slipped and fell on ice. Apparently, the patient developed blisters, which were noted the day after his fall. The largest blister was located over the right lateral forefoot. The patient was seen by his primary care physician, Dr. Burnette, 6 days later and at this time referred to the Emergency Department. After being seen in the Emergency Department, the patient was admitted for further evaluation and treatment. The patient was discharged from [facility] on 04/25/2017. Prior to being seen in the Wound Center, the patient's stated, Mr. Rock had been receiving dressing changes of ABDs and gauze. The patient's stated that Mr. Rock had been seen in consultation by Dr. Velázquez during his hospital stay. After being seen in the Wound Center, dressing changes of Silverlon were initiated. The patient has been receiving these dressing changes as prescribed. PHYSICAL EXAMINATION: VITAL SIGNS: Temperature 97.3, pulse 76, respirations 18, blood pressure 180/ 81. Accu-Chek 200. EXTREMITIES: An ulceration of the plantar surface of the right lateral foot is present, which measures approximately 2.0 x 2.2 cm. Granulation tissue is visible only at the periphery of the wound. Again, most of the wound bed is covered by dry stable eschar. No purulent drainage is associated with the wound. No erythema of the skin surrounding the wound is present. No maceration of the skin of the periwound is noted. A dorsalis pedis pulse is palpable on the right. No significant edema of the right foot is present on exam today. ASSESSMENT AND PLAN: 1. Ulceration of plantar surface of right lateral foot. Dressing changes of Silverlon will be continued 3 times per week after cleansing and irrigation. The patient's will continue to assist Mr. Rock with his dressing changes. I will see Mr. Rock again in four weeks. 2. Diabetes mellitus. The patient's Accu-Chek in clinic today is 200. The patient has been reminded that for optimal wound healing, his blood glucoses should remain below 150. 3. Hypertension. 4. Atrial fibrillation. 5. Gout. 6. History of transient ischemic attack. 7. Peripheral vascular disease. MTDD
[2017-05-16] MEDS ORDERED: Lidocaine 2% Jelly 5 ML TUBE ONE (11:11)
== END 2017-05-16 09:01 | disposition home or self-care (01) ==
LOC: WCC 09:00
PROVIDERS: ATTEND Family Medicine
DX: E11.621 Type 2 diabetes mellitus with foot ulcer (principal); L97.419 Non-pressure chronic ulcer of right heel and midfoot with unspecified severity; I10 Essential (primary) hypertension; I48.91 Unspecified atrial fibrillation; M10.9 Gout, unspecified; Z86.73 Personal history of transient ischemic attack (TIA), and cerebral infarction without residual deficits; E11.51 Type 2 diabetes mellitus with diabetic peripheral angiopathy without gangrene; I73.9 Peripheral vascular disease, unspecified
CPT/HCPCS: 36416; 97602

== ENCOUNTER 2017-07-15 09:14 | Outpatient (CLI) | payer MEDICARE ==
--- NOTE | 2017-07-15 11:09 | PRG ---
DATE OF SERVICE: 07/15/2017 HISTORY: Mr. Thomas Rock Jr. is a very pleasant 76-year-old gentleman accompanied by his moe sol presents to the Wound Center for evaluation of multiple lesions of the right foot. The patient's w max previously stated that on 04/17/2017, the patient slipped and fell on the ice. Apparently, the p atient developed blisters which were noted the day after his fall. The largest blister was located o kacie the right lateral forefoot. The patient was seen by his primary care physician, Dr. Burnette 6 days later and at this time referred to the Emergency Department. After being seen in the Emergency Department, the patient was admitted for further evaluation and treatment. The patient was discharg ed from [facility] on 04/25/2017. Prior to being seen in the Wound Center, khurram e patient's stated Mr. Rock had been receiving dressing changes of ABDs and gauze. The patient 's stated that Mr. Rock had been seen in consultation by Dr. Velázquez during his hospital stay. A fter being seen in the Wound Center, dressing changes of Silverlon were initiated. PHYSICAL EXAMINATION: VITAL SIGNS: Temperature 97.5, pulse 74, respirations 19, blood pressure 189/88. EXTREMITIES: An ulceration of the plantar surface of the right lateral foot is present which measure s approximately 1.2 x 2.9 cm. Granulation tissue is visible within the wound margins. Necrotic and nonviable tissue present within the wound margins was debrided with an excisional full-thickness debr idement with the use of a curette and scissors. No purulent drainage is associated with the wound. No erythema of the skin surrounding the wound is present. Maceration of the skin of the periwound is noted. A dorsalis pedis pulse is easily palpable on the right. No significant edema of the right f oot is present on exam today. ASSESSMENT AND PLAN: 1. Ulceration of plantar surface of right lateral foot. Dressing changes of Silverlon will be disco ntinued. Dressing changes of Multidex powder followed by an ABD and Kerlix will be initiated today. These dressing changes are to be performed on a daily basis after cleansing and irrigation. I will see Mr. Rock again in four weeks. 2. Diabetes mellitus. Accu-Cheks will be obtained at the time of the patient's clinic visits. The patient has been reminded that for optimal wound healing, his blood glucoses should remain below 150. 3. Hypertension. 4. Atrial fibrillation. 5. Gout. 6. History of transient ischemic attack. 7. Peripheral vascular disease.
[2017-07-15] MEDS ORDERED: Lidocaine 2% Jelly 5 ML TUBE ONE (14:54)
[2017-07-15] MEDS ORDERED: Sodium Chloride 0.9% 15 ML NEB ONE (14:54)
== END 2017-07-15 09:15 | disposition home or self-care (01) ==
LOC: WCC 09:14
PROVIDERS: ATTEND Family Medicine
DX: E11.621 Type 2 diabetes mellitus with foot ulcer (principal); L97.519 Non-pressure chronic ulcer of other part of right foot with unspecified severity; I10 Essential (primary) hypertension; E11.51 Type 2 diabetes mellitus with diabetic peripheral angiopathy without gangrene; I48.91 Unspecified atrial fibrillation; Z86.73 Personal history of transient ischemic attack (TIA), and cerebral infarction without residual deficits
CPT/HCPCS: A4218

== ENCOUNTER 2017-08-12 09:31 | Outpatient (CLI) | payer MEDICARE ==
--- NOTE | 2017-08-12 11:57 | PRG ---
DATE OF SERVICE: 08/12/2017 HISTORY: Mr. Thomas Rock Jr. is a very pleasant 76-year-old gentleman accompanied by his who presents to the Wound Center for evaluation of multiple lesions of the right foot. The patient's previously stated that on 04/17/2017 the patient slipped and fell on ice. Apparently, the julien ent developed blisters which were noted the day after his fall. The largest blister was located over the right lateral forefoot. The patient was seen by his primary care physician, Dr. Burnette, 6 d ays later and at this time referred to the Emergency Department. After being seen in the Emergency [facility], the patient was admitted for further evaluation and treatment. The patient was discharged from [facility] on 04/25/2017. Prior to being seen in the Wound Center the anay del castillo's stated Mr. Rock had been receiving dressing changes of ABDs and gauze. The patient's stated that Mr. Rock had been seen in consultation by Dr. Velázquez during his hospital stay. Afte r being seen in the Wound Center, dressing changes of Silverlon were initiated. Since the patient's last visit, Mr. Rock has been receiving dressing changes of Multidex powder. PHYSICAL EXAMINATION: VITAL SIGNS: Temperature 97.5, pulse 72, respirations 19, blood pressure 138/64. Accu-Chek 230. EXTREMITIES: An ulceration of the plantar surface of the right lateral foot is present which measure s approximately 1.5 x 0.7 cm. Granulation tissue is present within the wound margins. Necrotic and nonviable tissue present within the wound margins was debrided with an excisional full-thickness debr idement with the use of a curet and scissors. No purulent drainage is associated with the wound. No erythema of the skin surrounding the wound is present. No maceration of the skin of the periwound i s noted. A dorsalis pedis pulse is easily palpable on the right. No significant edema of the right foot is present on exam today. ASSESSMENT AND PLAN: 1. Ulceration of plantar surface of right lateral foot. Dressing changes of Multidex powder, 4 x 4s and Kerlix are to be performed on a daily basis after cleansing and irrigation. The wound has almos t healed completely and Mr. Rock will be discharged from clinic today with followup on a julio césarrlizzie stone s. 2. Diabetes mellitus. The patient's Accu-Chek in clinic today is 230. The patient has been reminde d that for optimal wound healing, his blood glucoses should remain below 150. 3. Hypertension. 4. Atrial fibrillation. 5. Gout. 6. History of transient ischemic attack. 7. Peripheral vascular disease.
[2017-08-12] MEDS ORDERED: Lidocaine 2% Jelly 5 ML TUBE ONE (16:05)
[2017-08-12] MEDS ORDERED: Sodium Chloride 0.9% 15 ML NEB ONE (16:05)
== END 2017-08-12 09:32 | disposition home or self-care (01) ==
LOC: WCC 09:31
PROVIDERS: ATTEND Family Medicine
DX: E11.621 Type 2 diabetes mellitus with foot ulcer (principal); L97.519 Non-pressure chronic ulcer of other part of right foot with unspecified severity; I10 Essential (primary) hypertension; I48.91 Unspecified atrial fibrillation; M10.9 Gout, unspecified; I73.9 Peripheral vascular disease, unspecified; Z86.73 Personal history of transient ischemic attack (TIA), and cerebral infarction without residual deficits
CPT/HCPCS: 11042; 36416; A4218